=== PATIENT | male | born 1960 | race Caucasian/White ===

== ENCOUNTER 2017-11-05 21:24 | Emergency (ER) | payer BC ==
[2017-11-05 21:32] VITALS: BP 146/88; PULSE 70; RESP 20; TEMP 97.3
--- NOTE | 2017-11-05 22:22 | ED ---
Skin/Abscess/FB HPI - General Chief complaint: Skin/Abscess/Foreign Body Stated complaint: Leg pain Time Seen by Provider: 11/05/17 21:41 Source: patient, family, RN notes reviewed Mode of arrival: ambulatory Limitations: no limitations - History of Present Illness Initial comments: This is a 57-year-old male who presents to the emergency department with a chief complaint of right lower extremity redness. Patient states that this morning he felt a tingling sensation in his right lower extremity. Around noon he noticed that his oliva was red. Him and his went out to dinner this evening and did some shopping. At approximately 9 PM he realized that he had some tenderness in his right oliva. Patient was concerned for a blood clot as he recently underwent varicose vein procedures in his right lower extremity. Patient states that he has been wearing hip high compression stockings daily. He denies any specific injuries or trauma to the right lower extremity. States he is currently taking amoxicillin for a sinus infection and his last dose is tomorrow. Denies any fevers or chills, shortness of breath or chest pain, abdominal pain, nausea or vomiting. - Related Data Home Medications Medication Instructions Recorded Confirmed Amoxicillin [Amoxicillin 125 MG 125 mg PO Q12H 11/05/17 11/05/17 Chew Tab] Previous Rx's Medication Instructions Recorded Amoxicillin/Potassium Clav 1 tab PO Q12HR #14 tab 11/05/17 [Augmentin 875-125 Tablet] Allergies Allergy/AdvReac Type Severity Reaction Status Date / Time No Known Allergies Allergy Verified 11/05/17 21:31 Review of Systems ROS Statement: Those systems with pertinent positive or pertinent negative responses have been documented in the HPI. ROS Other: All systems not noted in ROS Statement are negative. Past Medical History Past Medical History: No Reported History Additional Past Medical History / Comment(s): sinus infection, herpes History of Any Multi-Drug Resistant Organisms: None Reported Additional Past Surgical History / Comment(s): varicose veins Past Psychological History: No Psychological Hx Reported Smoking Status: Former smoker Past Alcohol Use History: None Reported Past Drug Use History: None Reported General Exam - General Exam Comments Initial Comments: General: Awake and alert, well-developed; in no apparent distress. is at bedside. HEENT: Head atraumatic, normocephalic. Pupils are equal, round and reactive to light. Extraocular movements intact. Oropharynx moist without erythema or exudate. Neck: Supple. Normal ROM. Cardiovascular: Regular rate and rhythm. No murmurs, rubs or gallops. Chest symmetrical. Respiratory: Lungs clear to auscultation bilaterally. No wheezes, rales or rhonchi. Normal respiratory effort with no use of accessory muscles. Musculoskeletal: Right mid oliva is erythematous, warm and tender on palpation. 2 superficial varicose veins noted at oliva. Bilateral 1+ pitting edema. Sensation is intact. No abrasions, lacerations or ulcers are noted to lower extremity or foot. Pedal pulses are 2+ equal and palpable bilaterally. Skin: Potter, warm and dry. Neurological: Alert and oriented x3. CN II-XII grossly intact. Speech is fluent and answers are appropriate. No focal neuro deficits. Psychiatric: Normal mood and affect. No overt signs of depression or anxiety noted. Limitations: no limitations Course Vital Signs 11/05/17 21:26 Temperature 97.3 F L Pulse Rate 70 Respiratory 20 Rate Blood Pressure 146/88 O2 Sat by Pulse 97 Oximetry Medical Decision Making - Medical Decision Making This is a 57-year-old male who presents to the emergency department with chief complaint of right lower extremity redness. Patient's right oliva is erythematous, warm and tender on palpation. This past July patient had varicose vein procedures and is concerned he may have a blood clot. No calf tenderness on palpation and negative Homans sign. Pulses are 2+ equal and palpable bilaterally. No palpable cords. Patient's vital signs are stable and he is in no acute distress. Denies fevers or chills, chest pain or shortness of breath. Patient will be started on Augmentin for cellulitis. Denies history of MRSA. Return parameters were discussed. Also recommended anti- inflammatories and warm compresses. Patient will be discharged home. He is in agreement with plan and voices understanding. All questions were answered. Disposition Clinical Impression: Cellulitis Disposition: HOME SELF-CARE Condition: Good Instructions: Cellulitis (ED) Additional Instructions: Please apply warm compresses and take anti-inflammatories. Please monitor redness and return to the emergency department if symptoms worsen or you notice any streaking of redness up the leg. Please take medications as prescribed. Please follow up with primary care provider within 1-2 days. Return to emergency department if symptoms should worsen or any concerns arise. Prescriptions: Amoxicillin/Potassium Clav [Augmentin 875-125 Tablet] 1 tab PO Q12HR #14 tab Referrals: Thomas Zavala MD [Primary Care Provider] - 1-2 days Time of Disposition: 22:21
== END 2017-11-05 22:25 | disposition home or self-care (01) ==
LOC: EC 21:24
DX: L03.115 Cellulitis of right lower limb (principal); Z87.891 Personal history of nicotine dependence
CPT/HCPCS: 99283

== ENCOUNTER 2018-06-01 09:52 | Day surgery (SDC) | payer BC ==
[2018-05-29 18:00] VITALS: BMI 36.9
[~2018-06-01 09:52] MED LIST: LACTATED RINGERS 1,000 ML IV SCH
[2018-06-01 10:14] VITALS: TEMP 97.3
[2018-06-01] MEDS ORDERED: LIDOCAINE 1% 20 ML VIAL (10MG/ML) FOR IV START INTRADERMA ONE (10:45)
[2018-06-01] MEDS ORDERED: LIDOCAINE 1% INJ 10MG/ML (20 ML MDV) ONE (11:17)
[2018-06-01] MEDS ORDERED: PROPOFOL 10 MG/ML 20 ML VIAL IV ONE (11:17)
[2018-06-01 11:53] VITALS: RESP 16
--- NOTE | 2018-06-01 11:59 | P.PCN ---
Date of Procedure: 06/01/18 Procedure(s) Performed: Procedure: Colonoscopy and polypectomy. Preoperative diagnosis: Screening for neoplasia. Postoperative diagnosis: Small sigmoid polyp snared but no large polyps or cancer. Preparation: HalfLytely prep. Sedation: Was provided by anesthesia. Brief clinical history: The patient is a 57-year-old male who is scheduled for this evaluation for screening for neoplasia age being his risk factor. He had an examination more than 10 years ago. At this time, he has no abdominal complaints, bleeding or anemia. Procedure: With the patient on his left lateral decubitus position and after informed consent and adequate sedation, the perianal area was inspected and it did not show any fissures or fistulas. There were no masses felt on digital rectal examination. The Olympus CFQ 160L video colonoscope was then inserted in the rectum in the usual fashion and advanced to the cecum. There was a small flat polyp measuring between 1 and 1.5 cm in the sigmoid around 40 cm from the anal verge which was snared and retrieved by suction but there were no large polyps or cancer. No obvious diverticular disease or other pathology. I retroflexed the endoscope in the rectum before the endoscope was withdrawn. The patient tolerated the procedure well. Plan: The patient was reassured. Will await pathology results. I anticipate repeating this exam in 5 years. He will follow up with you as planned.
[2018-06-01 12:07] VITALS: BP 129/92; PULSE 59
== END 2018-06-01 12:31 | disposition home or self-care (01) ==
LOC: ORWHC2ENDO 09:52
DX: Z12.11 Encounter for screening for malignant neoplasm of colon (principal); D12.5 Benign neoplasm of sigmoid colon; K21.9 Gastro-esophageal reflux disease without esophagitis; Z85.828 Personal history of other malignant neoplasm of skin; Z79.82 Long term (current) use of aspirin; Z79.899 Other long term (current) drug therapy
CPT/HCPCS: 88305; 45385; J2001; J2704

== ENCOUNTER 2019-01-10 14:09 | Emergency (ER) | payer BC ==
--- NOTE | 2019-01-10 15:24 | ED ---
Lower Extremity Injury HPI - General Chief Complaint: Extremity Injury, Lower Stated Complaint: RT LOWER LEG INJURY Time Seen by Provider: 01/10/19 14:49 Source: patient, RN notes reviewed Mode of arrival: ambulatory Limitations: no limitations - History of Present Illness Initial Comments: 58-year-old male presents emergency department tingling right leg injury. Patient states that he was using a sledgehammer to drive a stake in the ground and states that he missed striking his right leg on the inner aspect of his right knee. Patient states that he's had pain states is able tolerate weightbearing but states it is low more painful today and has noticed some increased leg swelling along with increased bruising. Patient denies any paresthesias. Patient denies any prior fractures. Patient denies any other complaints this time. - Related Data Home Medications Medication Instructions Recorded Confirmed Aspirin [Adult Low Dose Aspirin EC] 81 mg PO DAILY 05/29/18 01/10/19 Calcium Carb/Vitamin D3/Vit K1 1 each PO DAILY 05/29/18 01/10/19 [Citracal Soft Chew] Fish Oil (Unknown Dose) 3 cap PO DAILY 05/29/18 01/10/19 Ranitidine HCl 150 mg PO BID 05/29/18 01/10/19 Vitamin E (Dl,Tocopheryl Acet) 400 unit PO DAILY 05/29/18 01/10/19 [Vitamin E] Allergies Allergy/AdvReac Type Severity Reaction Status Date / Time No Known Allergies Allergy Verified 01/10/19 14:44 Review of Systems ROS Statement: Those systems with pertinent positive or pertinent negative responses have been documented in the HPI. ROS Other: All systems not noted in ROS Statement are negative. Past Medical History Past Medical History: Cancer, GERD/Reflux Additional Past Medical History / Comment(s): Herpes I & II. HIATAL HERNIA HX. SKIN CA HX. History of Any Multi-Drug Resistant Organisms: None Reported Additional Past Surgical History / Comment(s): Varicose Veins LASER, INJECTIONS. COLONOSCOPY, EGD Past Anesthesia/Blood Transfusion Reactions: No Reported Reaction Past Psychological History: No Psychological Hx Reported Smoking Status: Former smoker - Past Family History Brother(s) Family Medical History: Cancer Additional Family Medical History / Comment(s): LUNG General Exam Limitations: no limitations General appearance: alert, in no apparent distress Head exam: Present: atraumatic, normocephalic, normal inspection Respiratory exam: Present: normal lung sounds bilaterally. Absent: respiratory distress, wheezes, rales, rhonchi, stridor Cardiovascular Exam: Present: regular rate, normal rhythm, normal heart sounds. Absent: systolic murmur, diastolic murmur, rubs, gallop, clicks Extremities exam: Present: other (Right leg there is ecchymosis noted on the medial aspect of the knee to the distal tib-fib region. Patient has tenderness over the localized area of injury, patient has full range of motion the knee, pedal pulses equal bilaterally) Skin exam: Present: warm, dry, intact, normal color. Absent: rash Course Vital Signs 01/10/19 14:42 Temperature 98.4 F Pulse Rate 62 Respiratory 16 Rate Blood Pressure 151/70 O2 Sat by Pulse 97 Oximetry Medical Decision Making - Medical Decision Making 58-year-old male presented for right leg injury was sludge hammer. X-ray, ultrasound was obtained there is no acute fracture. Patient does have a complex fluid collection Jacques's cyst versus hematoma. This most likely is a hematoma secondary to nature injury. Patient be discharged return parameters discussed. Disposition Clinical Impression: Hematoma of right lower extremity Disposition: HOME SELF-CARE Condition: Stable Instructions (If sedation given, give patient instructions): Hematoma (ED) Additional Instructions: Please return to the Emergency Department if symptoms worsen or any other concerns. Is patient prescribed a controlled substance at d/c from ED?: No Referrals: Thomas Zavala MD [Primary Care Provider] - 1-2 days Time of Disposition: 16:16
--- NOTE | 2019-01-10 15:38 | XR ---
EXAMINATION TYPE: XR knee complete RT DATE OF EXAM: 01/10/2019 COMPARISON: NONE HISTORY: Pain TECHNIQUE: Four views are submitted. FINDINGS: A postsurgically change noted. Chronic deformity of the diaphysis of the femur. Mild narrowing of the medial and lateral components joint and patellofemoral joint. Spur along the upper margin patella.. Osseous structures are intact. No acute fracture seen. IMPRESSION: 1. No acute fracture or dislocation. 2. Arthropathy.
--- NOTE | 2019-01-10 16:02 | US ---
EXAMINATION TYPE: US venous doppler duplex LE RT DATE OF EXAM: 01/10/2019 3:50 PM COMPARISON: NONE CLINICAL HISTORY: Pain. Patient hit right leg with a sledgehammer 5 days ago just below the knee. Bru ising and edema right knee and lower leg SIDE PERFORMED: right TECHNIQUE: The lower extremity deep venous system is examined utilizing real time linear array sonog luis m with graded compression, doppler sonography and color-flow sonography. VESSELS IMAGED: External Iliac Vein (EIV) Common Femoral Vein Deep Femoral Vein Greater Saphenous Vein * Femoral Vein Popliteal Vein Small Saphenous Vein * Proximal Calf Veins (* superficial vessels) Right Leg: No evidence of DVT. Complex anechoic area within area of injury right upper calf just bel ow the knee = 6.2 x 1.4 x 3.0cm IMPRESSION: No evidence for DVT. Complex Jacques's cyst.
[2019-01-10 16:42] VITALS: BP 160/90; PULSE 70; RESP 18; TEMP 98.2
== END 2019-01-10 16:25 | disposition home or self-care (01) ==
LOC: EC 14:09
DX: S80.11XA Contusion of right lower leg, initial encounter (principal); K21.9 Gastro-esophageal reflux disease without esophagitis; Z87.891 Personal history of nicotine dependence; Z85.828 Personal history of other malignant neoplasm of skin; Z79.82 Long term (current) use of aspirin; Z79.899 Other long term (current) drug therapy; W22.8XXA Striking against or struck by other objects, initial encounter
CPT/HCPCS: 99284

== ENCOUNTER 2023-01-07 16:48 | Emergency (ER) | payer BC ==
[2023-01-07 16:54] VITALS: PULSE 66; TEMP 97.5
[2023-01-07] MEDS ORDERED: SODIUM CHLORIDE 0.9% 1,000 ML IV STA (17:49)
[2023-01-07] MEDS ORDERED: ASPIRIN 325 MG TAB PO STA (18:17)
[2023-01-07] MEDS ORDERED: PANTOPRAZOLE 40 MG/10 ML VIAL IVP STA (18:18)
[2023-01-07] MEDS ORDERED: FAMOTIDINE 20 MG/2 ML VIAL IV STA (18:18)
[2023-01-07] MEDS ORDERED: KETOROLAC 15 MG/ML 1 ML VIAL IVP STA (18:31)
[2023-01-07 18:55] LABS: Basophils % (A) 0 %; Eosinophils # (A) 0.2 k/uL (0-0.7); Eosinophils % (A) 2 %; HCT 47.5 % (39.0-53.0); HGB 15.8 gm/dL (13.0-17.5); Lymphocytes # (A) 1.4 k/uL (1.0-4.8); Lymphocytes % (A) 13 %; MCH 29.8 pg (25.0-35.0); MCHC 33.2 g/dL (31.0-37.0); Mean Platelet Volume 6.9; Monocytes # (A) 0.8 k/uL (0-1.0); Monocytes % (A) 7 %; Neutrophils # (A) 8.3 k/uL (1.3-7.7); Neutrophils % (A) 76 %; Platelet Count 260 k/uL (150-450); RBC 5.28 m/uL (4.30-5.90); RDW 12.8 % (11.5-15.5); WBC 10.9 k/uL (3.8-10.6)
[2023-01-07 19:35] LABS: Partial Thromboplastin Time 23.9 sec (22.0-30.0); Prothrombin Time 10.4 sec (9.0-12.0)
--- NOTE | 2023-01-07 19:37 | XR ---
EXAMINATION TYPE: XR chest 2V DATE OF EXAM: 01/07/2023 7:23 PM COMPARISON: Chest radiographs from 01/07/2023 TECHNIQUE: XR chest 2V Frontal and lateral views of the chest. CLINICAL INDICATION:Male, 62 years old with history of Chest Pain; FINDINGS: Lungs/Pleura: There is no evidence of pleural effusion, focal consolidation, or pneumothorax. Pulmonary vascularity: Unremarkable. Heart/mediastinum: Cardiomediastinal silhouette is unremarkable. Musculoskeletal: No acute osseous pathology. IMPRESSION: No acute cardiopulmonary disease/process.
[2023-01-07 19:39] LABS: ALT 23 U/L (4-49); AST 26 U/L (17-59); African American GFR (CKD) >90 (>60 ml/min/1.73 sqM); Albumin 4.1 g/dL (3.5-5.0); Alkaline Phosphatase 58 U/L (38-126); Anion Gap 11 mmol/L; Blood Urea Nitrogen 14 mg/dL (9-20); Calcium 8.6 mg/dL (8.4-10.2); Carbon Dioxide 23 mmol/L (22-30); Chloride 104 mmol/L (98-107); Glucose 107 mg/dL (74-99); Lipase 54 U/L (23-300); Magnesium 1.9 mg/dL (1.6-2.3); Non-African American GFR(CKD) >90 (>60 ml/min/1.73 sqM); Sodium 138 mmol/L (137-145); Total Bilirubin 1.4 mg/dL (0.2-1.3); Total Protein 7.1 g/dL (6.3-8.2)
[2023-01-07 19:45] LABS: Potassium 4.4 mmol/L (3.5-5.1)
--- NOTE | 2023-01-07 19:59 | ED ---
Chest Pain HPI - General Chief Complaint: Chest Pain Stated Complaint: chest pain Time Seen by Provider: 01/07/23 17:49 Source: patient Mode of arrival: ambulatory Limitations: no limitations - History of Present Illness Initial Comments: Patient is a 62-year-old male presents to the emergency department for chest pain. Patient woke up with the pain yesterday. He describes it as a consistent tightness and aching in the middle lower chest. No precipitating or exacerbating factors. Patient does note it got better while mowing the lawn with a walking lawnmower yesterday. He denies shortness of breath, nausea, vomiting. Denies fever, chills, back pain, cough, abdominal pain. Patient does have history of GERD he is currently on omeprazole. States this feels similar just more intense. He also has history of hypertension states he stopped needing hypertension medication after he lost weight and ate healthier. Patient did have a stress test and echocardiogram over 10 years ago which she states was negative. He does have family history of cardiac disease. He is a nonsmoker. Very occasional alcohol use. - Related Data Home Medications Medication Instructions Recorded Confirmed Aspirin [Adult Low Dose Aspirin EC] 81 mg PO DAILY 05/29/18 01/10/19 Calcium Carb/Vitamin D3/Vit K1 1 each PO DAILY 05/29/18 01/10/19 [Citracal Soft Chew] Fish Oil (Unknown Dose) 3 cap PO DAILY 05/29/18 01/10/19 Vitamin E (Dl,Tocopheryl Acet) 400 unit PO DAILY 05/29/18 01/10/19 [Vitamin E] raNITIdine HCL [Zantac] 150 mg PO BID 05/29/18 01/10/19 Previous Rx's Medication Instructions Recorded Famotidine [Pepcid] 20 mg PO BID #28 tablet 01/07/23 Ibuprofen [Motrin] 800 mg PO Q6HR #30 tab 01/07/23 Allergies Allergy/AdvReac Type Severity Reaction Status Date / Time No Known Allergies Allergy Verified 01/07/23 16:50 Review of Systems ROS Statement: Those systems with pertinent positive or pertinent negative responses have been documented in the HPI. ROS Other: All systems not noted in ROS Statement are negative. Past Medical History Past Medical History: Cancer, GERD/Reflux Additional Past Medical History / Comment(s): Herpes I & II. HIATAL HERNIA HX. SKIN CA HX. History of Any Multi-Drug Resistant Organisms: None Reported Additional Past Surgical History / Comment(s): Varicose Veins LASER, INJECTIONS. COLONOSCOPY, EGD Past Anesthesia/Blood Transfusion Reactions: No Reported Reaction Past Psychological History: No Psychological Hx Reported Smoking Status: Never smoker Past Alcohol Use History: Rare Past Drug Use History: None Reported - Past Family History Brother(s) Family Medical History: Cancer Additional Family Medical History / Comment(s): LUNG General Exam Limitations: no limitations General appearance: alert, in no apparent distress Head exam: Present: atraumatic, normocephalic, normal inspection Eye exam: Present: normal appearance, PERRL, EOMI. Absent: scleral icterus, conjunctival injection, periorbital swelling Respiratory exam: Present: normal lung sounds bilaterally. Absent: respiratory distress, wheezes, rales, rhonchi, stridor, chest wall tenderness Cardiovascular Exam: Present: regular rate, normal rhythm, normal heart sounds. Absent: systolic murmur, diastolic murmur, rubs, gallop, clicks GI/Abdominal exam: Present: soft, normal bowel sounds. Absent: distended, tenderness, guarding, rebound, rigid Extremities exam: Present: normal inspection, full ROM, normal capillary refill Neurological exam: Present: alert, oriented X3, CN II-XII intact Psychiatric exam: Present: normal affect, normal mood Skin exam: Present: warm, dry, intact, normal color. Absent: rash Course Vital Signs 01/07/23 01/07/23 16:51 20:00 Temperature 97.5 F L Pulse Rate 66 66 Respiratory 18 16 Rate Blood Pressure 184/92 149/88 O2 Sat by Pulse 97 99 Oximetry Chest [facility] taken at 17:02, interpreted by me Sinus rhythm, no ST segment or T-wave abnormality Ventricular rate 72, TN interval 156, QRS duration 93, QTc 407 Was pt. sent in by a medical professional or institution (, PA, OEM SALES MANAGER, urgent care, hospital, or half-way...) When possible be specific @ -No Did you speak to anyone other than the patient for history (EMS, parent, family, police, friend...)? What history was obtained from this source @ -No Did you review nursing and triage notes (agree or disagree)? Why? @ -I reviewed and agree with nursing and triage notes Were old charts reviewed (outside hosp., previous admission, EMS record, old EKG, old radiological studies, urgent care reports/EKG's, half-way records)? Report findings @ -No old charts were reviewed Differential Diagnosis (chest pain, altered mental status, abdominal pain women, abdominal pain men, vaginal bleeding, weakness, fever, dyspnea, syncope, headache, dizziness, GI bleed, back pain, seizure, CVA, palpatations, mental health)? @ -Differential Chest Pain: Stable Angina, Unstable Angina, STEMI, NSTEMI Aortic Dissection, Pneumothorax, Musculoskeletal, Esophageal Spasm GERD, Cholecystitis, Pancreatitis, Zoster, this is not meant to be an all-inclusive list. EKG interpreted by me (3pts min.). @ -As above X-rays interpreted by me (1pt min.). @ -Yes, chest x-ray negative for acute process. CT interpreted by me (1pt min.). @ -None done U/S interpreted by me (1pt. min.). @ -None done What testing was considered but not performed or refused? (CT, X-rays, U/S, labs)? Why? @ -None What meds were considered but not given or refused? Why? @ -None Did you discuss the management of the patient with other professionals (professionals i.e. , PA, OEM SALES MANAGER, lab, RT, psych nurse, socially responsible investment adviser, inspector glass or mirror, teacher, first officer and flight instructor, business case analyst)? Give summary @ -No Was smoking cessation discussed for >3mins.? @ -No Was critical care preformed (if so, how long)? @ -No Were there social determinants of health that impacted care today? How? (Homelessness, low income, unemployed, alcoholism, drug addiction, transportation, low edu. Level, literacy, decrease access to med. care, long term, rehab)? @ -No Was there de-escalation of care discussed even if they declined (Discuss DNR or withdrawal of care, Hospice)? DNR status @ -No What co-morbidities impacted this encounter? (DM, HTN, Smoking, COPD, CAD, Cancer, CVA, ARF, Chemo, Hep., AIDS, mental health diagnosis, sleep apnea, morbid obesity)? @ -None Was patient admitted / discharged? Hospital course, mention meds given and route, prescriptions, significant lab abnormalities, going to OR and other pertinent info. @ -Patient presenting for chest pain. He arrives hypertensive at 184/92. EKG obtained which shows no evidence of acute ischemia. Laboratory studies obtained. Troponin and d-dimer are within normal limits. Other laboratory studies are relatively unremarkable. Patient given Pepcid, Protonix, Toradol, aspirin. On reevaluation patient states his pain is almost resolved. Patient satisfied with visit ready to go home. We discussed disposition options his heart score is 4. He was offered observation for cardiology evaluation and declined to follow-up outpatient. Heatt score is 4. I believe this is reasonable. Chest pain is atypical. I suspect symptoms are related to GERD. Patient will be discharged with Pepcid and Motrin. He will follow up with cardiology outpatient. Undiagnosed new problem with uncertain prognosis? @ -[o]Drug Therapy requiring intensive monitoring for toxicity (Heparin, Nitro, Insulin, Cardizem)? @ -[o]Were any procedures done? @ -[o]Diagnosis/symptom? @ -atypical chest pain Acute, or Chronic, or Acute on Chronic? @ -acute Uncomplicated (without systemic symptoms) or Complicated (systemic symptoms)? @ uncomplicated Side effects of treatment? @ -No Exacerbation, Progression, or Severe Exacerbation? @ -No Poses a threat to life or bodily function? How? (Chest pain, [place], [place], pneumonia, PE, COPD, DKA, ARF, appy, cholecystitis, CVA, Diverticulitis, Homicidal, Suicidal, threat to staff... and all critical care pts) @ -No Dr. Oleary is my attending Disposition Clinical Impression: Atypical chest pain Disposition: HOME SELF-CARE Condition: Good Instructions (If sedation given, give patient instructions): Chest Pain (ED), GERD (Gastroesophageal Reflux Disease) (ED) Additional Instructions: Take medication as directed. Avoid GERD triggers which we talked about today. Please follow-up with quarry supervisor dimension stone in 1-2 days. Return to the emergency department if you experience new, concerning, or worsening symptoms Prescriptions: Ibuprofen [Motrin] 800 mg PO Q6HR #30 tab Famotidine [Pepcid] 20 mg PO BID #28 tablet Is patient prescribed a controlled substance at d/c from ED?: No Referrals: Thomas Zavala MD [Primary Care Provider] - 1-2 days Benji Fong MD [STAFF PHYSICIAN] - 1-2 days
[2023-01-07 20:01] VITALS: BP 149/88; RESP 16
== END 2023-01-07 20:28 | disposition home or self-care (01) ==
LOC: EC 16:48
DX: R07.89 Other chest pain (principal); Z79.82 Long term (current) use of aspirin
CPT/HCPCS: 36415; 93005; 85379; 80053; 83690; 83735; 84484; 85025; 85610; 85730; 71046; 99285; 96374; 96375 ×2; 96361; J1885; C9113

== ENCOUNTER 2023-06-22 11:17 | Day surgery (SDC) | payer BC ==
[2023-06-22 12:46] VITALS: RESP 16; TEMP 97.3
[2023-06-22] MEDS ORDERED: PROPOFOL 10 MG/ML 20 ML VIAL IV ONE (13:00)
--- NOTE | 2023-06-22 13:10 | P.PCN ---
Date of Procedure: 06/22/23 Procedure(s) Performed: BRIEF HISTORY: Patient is a 62-year-old pleasant white male scheduled for an elective colonoscopy as a part of screening for colon cancer and prior history of colon polyps. PROCEDURE PERFORMED: Colonoscopy. PREOPERATIVE DIAGNOSIS: History of colon polyps and screening for colon cancer IV sedation per Anesthesia. PROCEDURE: After informed consent was obtained, the patient, was brought into the endoscopy unit. IV sedation was administered by Anesthesia under continuous monitoring. Digital rectal examination was normal. Initially the Olympus CF-160 flexible video colonoscope was then inserted in the rectum, gradually advanced into the cecum without any difficulty. Careful examination was performed as the scope was gradually being withdrawn. Ileocecal valve and the appendiceal orifice were visualized and appeared normal. Prep was excellent. Mucosa of the cecum, ascending colon, transverse colon, descending colon, sigmoid colon, and rectum appeared normal. Retroflexion was performed in the rectum andsmall internal hemorrhoids were seen. The patient tolerated the procedure well. IMPRESSION: Normal-appearing colon from rectum to cecumwith no evidence of colorectal neoplasia . RECOMMENDATIONS: Findings of this examination were discussed with the patientas well as his family. He was advised to have a repeat colonoscopy in 10 years..
[2023-06-22 14:06] VITALS: BP 137/80; PULSE 59
== END 2023-06-22 14:04 | disposition home or self-care (01) ==
LOC: ORWHC2ENDO 11:17
PROVIDERS: ATTEND Internal Medicine Gastroenterology
DX: Z12.11 Encounter for screening for malignant neoplasm of colon (principal); Z86.010 Personal history of colon polyps; K21.9 Gastro-esophageal reflux disease without esophagitis; J45.909 Unspecified asthma, uncomplicated; Z85.828 Personal history of other malignant neoplasm of skin; Z79.899 Other long term (current) drug therapy
CPT/HCPCS: 45378; J2704